=== PATIENT | female | born 1970 | race Caucasian/White ===

== ENCOUNTER 2018-10-08 07:20 | Day surgery (SDC) | payer BC ==
[2018-10-04 12:22] VITALS: BMI 22.9
[2018-10-04 13:30] LABS: Hemoglobin 13.2 g/dL (12.0-16.0); Mean Corpuscular Hemoglobin 30.4 pg (27.0-31.0); Mean Corpuscular Volume 89.4 fL (78.0-98.0); Mean Platelet Volume 7.2 fL (7.4-10.4); Platelet Count 262 thou/uL (130-400); RBC Distribution Width 14.3 % (11.5-14.5); Red Blood Cell (RBC) Count 4.33 mill/uL (4.20-5.40); White Blood Cell (WBC) Count 8.3 thou/uL (4.8-10.8)
[2018-10-08] MEDS ORDERED: CeleCOXIB 100 MG CAP ONE (07:56)
[2018-10-08] MEDS ORDERED: Famotidine/PF 20 mg/2ml Vial ONE (07:56)
[2018-10-08] MEDS ORDERED: Gabapentin 300 MG CAP ONE (07:56)
[2018-10-08] MEDS ORDERED: Fentanyl 100 MCG/2 ML VIAL ONE ×4 (09:47→13:57)
[2018-10-08] MEDS ORDERED: Scopolamine 1.5 mg/72 hour Patch ONE (09:47)
[2018-10-08] MEDS ORDERED: Bupivacaine HCl 0.5%/Epinephrine 1:200,000/PF 30 ml Vial ONE (09:52)
[2018-10-08] MEDS ORDERED: Promethazine HCl 25 MG/ML VIAL IM PRN (12:24)
[2018-10-08] MEDS ORDERED: diphenhydrAMINE 25 MG CAP PO PRN (12:24)
[2018-10-08] MEDS ORDERED: Bisacodyl 10 MG SUPP PR PRN (12:24)
[2018-10-08] MEDS ORDERED: Ondansetron PF 4 MG/2 ML Vial IVP PRN (12:24)
[2018-10-08] MEDS ORDERED: traMADol HCl 50 MG TAB PO PRN ×2 (12:24)
[2018-10-08] MEDS ORDERED: Zolpidem Tartrate 5 MG TAB PO PRN (12:24)
[2018-10-08] MEDS ORDERED: Acetaminophen 325 MG TAB PO PRN (12:24)
[2018-10-08] MEDS ORDERED: Morphine 4 MG/ML VIAL SLOW IVP PRN (12:24)
[2018-10-08] MEDS ORDERED: Rocuronium Bromide 10 MG/ML (10ML VIAL) ONE (12:34)
[2018-10-08] MEDS ORDERED: Glycopyrrolate 0.2 MG/ML 5 ML SYRINGE ONE (12:34)
[2018-10-08] MEDS ORDERED: Dexamethasone 20 MG/5 ML VIAL ONE (12:34)
[2018-10-08] MEDS ORDERED: Lidocaine 1% PF 5 ML VIAL ONE (12:34)
[2018-10-08] MEDS ORDERED: Ondansetron PF 4 MG/2 ML Vial ONE (12:34)
[2018-10-08] MEDS ORDERED: PROPOFOL 200 MG/20 ML VIAL ONE (12:34)
[2018-10-08] MEDS ORDERED: PHENYLEPHRINE-NS 100 MCG/ML 10 ML SYRINGE ONE (12:34)
[2018-10-08] MEDS ORDERED: Simethicone Chewable 80 MG TAB PO PRN (13:00)
[2018-10-08] MEDS: Sodium Chloride 0.9% 1,000 ML IV SCH ×2 (15:30→20:25)
[2018-10-08] MEDS: Ketorolac Tromethamine 30 MG/ML VIAL IVP SCH ×2 (17:44→23:42)
[2018-10-09] MEDS: Sodium Chloride 0.9% 1,000 ML IV SCH (04:13)
[2018-10-09] MEDS: Ketorolac Tromethamine 30 MG/ML VIAL IVP SCH (05:31)
[2018-10-09 06:49] LABS: Hemoglobin 11.3 g/dL (12.0-16.0); Mean Corpuscular HGB CONC 33.1 g/dL (32.0-36.0); Mean Corpuscular Hemoglobin 29.6 pg (27.0-31.0); Mean Corpuscular Volume 89.4 fL (78.0-98.0); Mean Platelet Volume 7.2 fL (7.4-10.4); Platelet Count 224 thou/uL (130-400); RBC Distribution Width 14.1 % (11.5-14.5); Red Blood Cell (RBC) Count 3.84 mill/uL (4.20-5.40); White Blood Cell (WBC) Count 15.9 thou/uL (4.8-10.8)
[2018-10-09 08:00] VITALS: BP 100/54; TEMP 98.5
--- NOTE | 2018-10-09 08:27 | PDOC.EVN ---
Event Note - Event Note Event Note: Pt doing well on post operative day 1. Her pain is well controlled. She has very minimal vaginal bleeding. She is eating and drinking well. She has started to pass flatulence. NO leg pain or swelling. NO CP or SOB. She has been up and ambulatory to restroom and is voiding without difficulty. VSS. Afebrile. PT resting comfortable in bed. Normal respiratory effort. Abdomen is soft, non distended. Incisions, dry and intact. Legs are non tender without edema. PT is neurologically intact. H&H are stable this am. Pt is s/p RATLH BS with left ovarian cyst aspiration. Pt is doing well on post op day one and pain controlled. Plan for discharge later this am. She will continue her iron and vitamin D. Pt has 2 week follow up appointment scheduled. Rx for ibuprofen and tramadol have been sent to pharmacy. Discharge planning and home care discussed with patient at bedside.
[2018-10-09] MEDS ORDERED: Ferrous Sulfate 325 MG TAB PO SCH (09:00)
[2018-10-09] MEDS ORDERED: OSTERA PO SCH (09:00)
[2018-10-09] MEDS ORDERED: Non-Formulary Item 1 EACH (Vit D3-Vit K/Berberine/Hops [Ostera Tablet] 1 TAB) PO SCH (09:00)
--- NOTE | 2018-10-10 13:22 | OP ---
DATE OF PROCEDURE: 10/08/2018 PREOPERATIVE DIAGNOSES: 1. Menorrhagia. 2. Pelvic pain. 3. Uterine fibroids. POSTOPERATIVE DIAGNOSES: 1. Menorrhagia. 2. Pelvic pain. 3. Uterine fibroids. PROCEDURES PERFORMED: Fractional D and C with frozen section, robotic assisted total laparoscopic hysterectomy, bilateral salpingectomy. ANESTHESIA: General endotracheal. SHIPPING AND RECEIVING SPECIALIST SURGEON: Hafsa Naidu PA-C ESTIMATED BLOOD LOSS: 30 mL. IVF: 1 L crystalloid. URINE OUTPUT: 370 mL clear urine. PATHOLOGY: Endometrial curettings and cervical polyp, which on frozen section was benign. Uterus, cervix, and bilateral fallopian tubes for final pathology. DRAINS: Lobo catheter. COMPLICATIONS: None. FINDINGS: Multiple small uterine fibroids. The uterus sounded to 8 cm. There was a benign appearing cyst on the left ovary that was 1.5 cm. There was also a small hemorrhagic cyst on the right ovary that was aspirated. The fallopian tubes were normal appearing bilaterally. There was a deeper red endometriotic implant involving the left ureter just distal to the pelvic brim and there was additional nodularity on the right uterosacral ligament that was cauterized. The appendix was normal appearing. The sigmoid bowel did appear distended. Hemostasis was excellent and counts were correct. DESCRIPTION OF PROCEDURE: The patient was taken to the operating room, where general anesthesia was obtained without difficulty. The patient was prepped and draped in a sterile fashion in a dorsal lithotomy position. Lboo catheter was placed in the bladder. A speculum was placed in the vagina. Anterior lip of the cervix was grasped with single-tooth tenaculum. There was a small cervical polyp at approximately 5 o'clock that was removed with a ring forceps and sent for frozen section. The uterus then sounded to 8 cm and was progressively dilated with Ethan dilators. The sharp curettage was taken to the endometrium and the specimen was sent down for frozen to ensure no hyperplasia or malignancy, which returned negative. The CYNTHIA manipulator was assembled with an 8 cm tip and a 3 cm colpotomizer ring. The CYNTHIA tip was inserted to the uterine fundus. The balloon was inflated. Colpotomizer ring was advanced to fit snugly around the cervix and instruments removed out of the vagina. The legs were placed in low lithotomy. Attention was turned to the abdomen. After confirming that the frozen section was benign, 0.5% Marcaine was infiltrated into the umbilicus and a 12 mm skin incision was made. The Veress needle was passed into the abdomen, noting an opening pressure of 5 mmHg. Pneumoperitoneum was obtained without difficulty. Veress needle was removed. A 12 mm trocar was advanced into the abdomen and confirmed placement with the camera. Steep Trendelenburg was obtained. Right and left lower quadrant 8 mm robotic trocars were placed under direct visualization after infiltrating with 0.5% Marcaine with epi. A right upper quadrant 11 mm medical billing assistant port was also placed under direct visualization after infiltrating with anesthetic. The robot was then docked. The right robotic arm contained the monopolar scissors and left robotic arm contained a fenestrated bipolar. The ovary was normal appearing as previously, where there was a concern for a cyst on the left ovary with the patient's left lower quadrant pain. However, this seemed to be resolving. Therefore, decision was made to leave both of the ovaries. The left fallopian tube was grasped and elevated. The mesosalpinx was sequentially clamped and cauterized, fenestrated and transected with the scissors until the medial portion of the tube was met. This was then clamped across, cauterized and transected and removed out of the abdomen. The utero-ovarian was cauterized multiple times and transected in the middle with the scissors and taken down to the round ligament that was incised in the midportion after cautery. The posterior leaf of the broad ligament was dropped down to the uterosacral. The anterior leaf of the broad ligament was dropped down to the vesicouterine peritoneum over the cervix. The vessels were skeletonized laterally allowing the ureter to drop well away and this was noted to be running laterally in the sidewall during the case. Attention was turned to the right side, where the fallopian tube was grasped and elevated. The mesosalpinx was cauterized and transected from lateral to medial. The fallopian tube was then clamped across, cauterized, transected, and removed out of the abdomen. The utero-ovarian was cauterized multiple times on the right side and then transected with the scissors and sequentially clamped, cauterized, and transected until the round ligament was met. The round ligament was then cauterized and incised with the scissors and the posterior lip of the broad ligament was dropped down with the scissors, undermining and dissecting the retroperitoneum of the vascular pedicle with the push and spread technique with the fenestrated. The anterior leaf of the broad ligament was then dropped down and the bladder flap was further created incising the reticular fibers as well as scoring on the pubocervical fascia to dissect down the bladder well below the level of the colpotomizer ring and hemostasis was achieved with the scissors. The vessels were skeletonized laterally on the right and then caught, clamped, and cauterized with the fenestrated. The left uterine pedicle was also clamped and cauterized with the fenestrated. Posterior colpotomy was performed and then completed anteriorly and hemostasis was noted. The uterus was then removed into the vagina and the scissors were traded out for the needle petrol tanker driver. The 2-0 barbed STRATAFIX suture was used to close the vaginal cuff in a running fashion incorporating vaginal mucosa and posterior peritoneum in each bite with excellent closure noted and hemostasis as well. Irrigation was performed of the pelvis and suctioned. The additional investigation of the pelvis noted the nodularity on the right uterosacral, which was cauterized and the deeply infiltrating endometriotic implant at the left pelvic brim. There was no additional visible endometriotic implants as the endometriotic implant felt to be invading the ureter. This was not amenable to resection without extensive surgery and therefore, this was documented with pictures and left alone. Low pressure check was performed. Hemostasis was noted to be excellent. The appendix was visualized and appeared slightly distended; however, Dr. Hgugins did come into the room and noted that the appendix was normal appearing and this was left alone. At that time, all instruments removed out of the abdomen. Pneumoperitoneum was released. The robot was undocked and the fascia of the umbilical port was closed with a 0 Vicryl in a [id number] fashion. The skin was closed with 4-0 Monocryl in a subcuticular fashion and Dermabond was applied. The vagina was checked. There was no injury or lacerations. The cuff was closed and there was no active bleeding. All instruments removed out of the vagina. The patient tolerated the procedure well. Sponge, lap, and needle counts correct x2. The patient was taken to recovery room in stable condition. The patient received Ancef 2 g prior to the procedure. Job ID: [id number]
[2018-10-13] MEDS ORDERED: Ibuprofen 800 MG TAB PO SCH (06:00)
== END 2018-10-09 09:27 | disposition home or self-care (01) ==
LOC: SDC 07:20 → 3SE 14:40 → SDC 10-09 09:27
PROVIDERS: ATTEND Student in an Organized Health Care Education/Training Program
PROC: 0UT94ZZ Resection of Uterus, Percutaneous Endoscopic Approach (ICD-10-PCS; principal; 2018-10-09)
PROC: 0UT74ZZ Resection of Bilateral Fallopian Tubes, Percutaneous Endoscopic Approach (ICD-10-PCS; principal; 2018-10-09)
DX: D25.2 Subserosal leiomyoma of uterus (principal); N72 Inflammatory disease of cervix uteri; N70.11 Chronic salpingitis; N84.0 Polyp of corpus uteri; N83.202 Unspecified ovarian cyst, left side; N83.201 Unspecified ovarian cyst, right side; N88.8 Other specified noninflammatory disorders of cervix uteri; D64.9 Anemia, unspecified; Z80.41 Family history of malignant neoplasm of ovary; Z88.8 Allergy status to other drugs, medicaments and biological substances; Z88.5 Allergy status to narcotic agent; Z79.899 Other long term (current) drug therapy
CPT/HCPCS: 36415; 85027; 86850; 86900; 86901; 88305; 88307; 88331; J0131; J0670; J0690; J1100; J1885; J2001; J2270; J2405; J2704; J3010; S0028